=== PATIENT | male | born 1965 | race Two or more races ===

== ENCOUNTER 2025-08-06 21:56 | Emergency (ER) | payer MEDICAID, OTHER ==
[~2025-08-06] VITALS: Ht 177.8 cm; Wt 92.1 kg
--- NOTE | 2025-08-06 23:33 | DVH ---
CLINICAL INDICATION: left ankle pain TECHNIQUE: XY L ANKLE 3 VIEW, XY L FOOT 3 VIEW XRAY Comparison: XY L FOOT 3 VIEW XRAY on DOS: 08/06/25 FINDINGS/IMPRESSION: : There is no evidence of acute fracture or dislocation. 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 Soft tissues are unremarkable. Atherosclerotic vascular calcifications.
[2025-08-06 23:37] VITALS: BP 152/108; PULSE 98; RESP 16; O2SAT 97
[2025-08-07] MEDS ORDERED: ACE3T PO ×2 (00:09→18:24)
--- NOTE | 2025-08-07 00:10 | ED.PDOC ---
Musculoskeletal HPI Comments 60 year old male presents to ER with complaints of left ankle pain x 1 day. Patient reports he started experiencing 9/10 pain and swelling to left lateral ankle with radiation towards left foot s/p accidentally rolling his left ankle inwards while getting out of bed at 2 a.m. prior to arrival to ER. Denies falling/head injury. Notes he did take ibuprofen prior to arrival to ER and presents to ER with use of cane, in mild distress. Denies numbness/tingling or any further symptoms/complaints Chief Complaint: Lower Extremity Time Seen by MD: 22:34 Primary Care Provider: KAT Reviewed Notes: Nurses Notes, Medications, Allergies Allergies: Coded Allergies: Penicillins (Verified Allergy, Unknown, 08/06/25) Home Meds Active Scripts Acetaminophen W/ Codeine (Tylenol W/Cod #3) 1 Tab Tb, 1 TAB PO Q6HPRN, #10 TAB 0 Refills Prov:ADAMSTEFFANY 08/07/25 Information Source: Patient Mode of Arrival: Ambulatory Past Medical History PAST MEDICAL HISTORY: DM, HTN Past Medical History (Other): CKD Surgical History (Other): Lumbar spinal surgery Family History Family History: Unknown Social History Smoker: Non-Smoker Alcohol: Denies ETOH Use Drugs: Denies Drug Use Lives In: Home Constitutional: denies: chills, diaphoresis, fatigue, fever, malaise, sweats, weakness, others EENTM: denies: blurred vision, double vision, ear bleeding, ear discharge, ear drainage, ear pain, ear ringing, eye pain, eye redness, hearing loss, mouth pain, mouth swelling, nasal discharge, nose bleeding, nose congestion, nose pain, photophobia, tearing, throat pain, throat swelling, voice changes, others Respiratory: denies: cough, hemoptysis, orthopnea, SOB at rest, shortness of breath, SOB with excertion, stridor, wheezing, others Cardiovascular: denies: chest pain, dizzy spells, diaphoresis, Dyspnea on exertion, edema, irregular heart beat, left arm pain, lightheadedness, palpitations, PND, syncope, others Gastrointestinal: denies: abdomen distended, abdominal pain, blood streaked bowels, constipated, diarrhea, dysphagia, difficulty swallowing, hematemesis, melena, nausea, poor appetite, poor fluid intake, rectal bleeding, rectal pain, vomiting, others Genitourinary: denies: burning, dysuria, flank pain, frequency, hematuria, incontinence, penile discharge, penile sore, pain, testicle pain, testicle swelling, urgency, others Neurological: denies: dizziness, fainting, headache, left sided numbness, left sided weakness, numbness, paresthesia, pre-existing deficit, right sided numbness, right sided weakness, seizure, speech problems, tingling, tremors, weakness, others Musculoskeletal: reports: others (As stated in HPI) Integumetry: reports: others (As stated in HPI) Allergic/Immunocompromised: denies: Difficulty Healing, Frequent Infections, Hives, Itching, others Hematologic/Lymphatic: denies: anemia, blood clots, easy bleeding, easy bruising, swollen glands, others Endocrine: denies: excessive hunger, excessive sweating, excessive thirst, excessive urination, flushing, intolerance to cold, intolerance to heat, unexplained weight gain, unexplained weight loss, others Psychiatric: denies: anxiety, bipolar disorder, depression, hopeless, panic disorder, schizophrenia, sleepless, suicidal, others Physical Exam General Appearance: Mild Distress HEENT: PERRL/EOMI Neck: Full Range of Motion, Non-Tender, Normal Respiratory: Chest Non-Tender, Lungs Clear, No Accessory Muscle Use, No Respiratory Distress, Normal Breath Sounds Cardiovascular: No Murmur, No Gallop, Regular Rate/Rhythm Breast Exam: Deferred Gastrointestinal: NOT DONE Genitalia: Deferred Pelvic: Deferred Rectal: Deferred Extremities: Normal capillary refill, Normal range of motion Musculoskeletal : Extremity Location: Ankle (TTP/mild swelling noted to left lateral malleolus. Minimal TTP to left lateral foot noted. No further skin changes noted. No other TTP to left lower extremity noted. Pulses intact. Patient favors right leg on ambulation with use of cane) Neurologic: Alert, No Motor Deficits, No Sensory Deficits Cerebellar Function: Normal Reflexes: Normal Skin: Dry, Normal Color, Warm Peripheral Pulses: 2+ dorsalis pedis (R), 2+ dorsalis pedis (L), 2+ Radial (R), 2+ Radial (L), 2+ Brachial (R), 2+ Brachial (L) Lymphatic: No Adenopathy Was a procedure done? Was a procedure done?: No Sedation Sedation?: No Differential Diagnosis EXT Differential Diagnosis: Fracture, Dislocation, Neurovascular injury X-Ray, Labs, Meds, VS Vital Signs Date Time Temp Pulse Resp B/P (MAP) Pulse Ox O2 Delivery O2 Flow Rate FiO2 08/07/25 00:05 Room Air* 0 21 08/06/25 23:37 98 16 152/108 (123) 97 08/06/25 21:58 105 16 189/118 96 PATIENT: DIONI BOSE NACCT: [id number]: [id number] : 1965 LOC: ER ROOM / BED: / AGE / SEX: 60 / M ADM STATUS: REG ER SERVICE 45 ORDERING PHYSICIAN: STEFFANY MEDINA PROCEDURE(s): LFOOT - L FOOT 3 VIEW XRAY REASON: left foot pain ORDER NUMBER(s): [id number], ACCESSION NUMBER(s): [id number] CLINICAL INDICATION: left ankle pain TECHNIQUE: XY L ANKLE 3 VIEW, XY L FOOT 3 VIEW XRAY Comparison: XY L FOOT 3 VIEW XRAY on DOS: 08/06/25 FINDINGS/IMPRESSION: : There is no evidence of acute fracture or dislocation. 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 Soft tissues are unremarkable. Atherosclerotic vascular calcifications. ATED BY: CHRISTIANO RECIO MD DICTATED DATE/TIME: 08/06/252329 SIGNED BY: CHRISTIANO RECIO MD SIGNED DATE/TIME: 08/06/252329 CC: PATIENT: DIONI BOSE NACCT: [id number] UNIT: [id number] : 1965 LOC: ER ROOM / BED: / AGE / SEX: 60 / M ADM STATUS: REG ER SERVICE 45 ORDERING PHYSICIAN: STEFFANY MEDINA PROCEDURE(s): LANKL - L ANKLE 3 VIEW REASON: left ankle pain ORDER NUMBER(s): [id number], ACCESSION NUMBER(s): [id number] CLINICAL INDICATION: left ankle pain TECHNIQUE: XY L ANKLE 3 VIEW, XY L FOOT 3 VIEW XRAY Comparison: XY L FOOT 3 VIEW XRAY on DOS: 08/06/25 FINDINGS/IMPRESSION: : There is no evidence of acute fracture or dislocation. 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 Soft tissues are unremarkable. Atherosclerotic vascular calcifications. ATED BY: CHRISTIANO RECIO MD DICTATED DATE/TIME: 08/06/252329 SIGNED BY: CHRISTIANO RECIO MD SIGNED DATE/TIME: 08/06/252329 CC: Left ankle x-ray reviewed Left foot x-ray reviewed Familia wrap applied Patient neurovascularly intact and reported improvement in symptoms prior to discharge Advised on continued use of cane and on elevation and alternate ice on/off as needed for pain Advised to follow up PCP and orthopedics in 1-2 days Patient verbalized understanding and agreeable with current plan of care Advised to return to ER immediately if symptoms worsen Images Reviewed?: Images reviewed and evaluated by me Time of 1ST Reevaluation: 23:40 Reevaluation 1ST: N/A Patient Education/Counseling: Diagnosis, Treatment, Prognosis, Need For Follow Up Family Education/Counseling: No Family Present Departure 1 Departure Time of Disposition: 00:08 Impression: Primary Impression: Left ankle sprain Qualified Codes: S93.402A - Sprain of unspecified ligament of left ankle, initial encounter Additional Impression: Sprain of left foot Qualified Codes: S93.602A - Unspecified sprain of left foot, initial encounter Disposition: HOME / SELF CARE / HOMELESS Condition: Stable e-Prescriptions Acetaminophen W/ Codeine (Tylenol W/Cod #3) 1 Tab Tb 1 TAB PO Q6HPRN, #10 TAB 0 Refills Prov: STEFFANY MEDINA 08/07/25 Discharged With: Significant Other Critical Care Note Critical Care Time?: No Stability Stability form required: No Heart Score Heart Score: Heart Score Response (Comments) Value History N/A 0 EKG N/A 0 Age N/A 0 Risk Factors N/A 0 Troponin N/A 0 Total 0 STEFFANY MEDINA Aug 07, 2025 00:10
[2025-08-07] MEDS: HYDROcodone-ACET 5/325MG TAB PO ONE (00:18)
== END 2025-08-07 00:25 | disposition home or self-care (01) ==
LOC: ER 21:56
DX: S93.402A Sprain of unspecified ligament of left ankle, initial encounter (principal); S93.602A Unspecified sprain of left foot, initial encounter; I12.9 Hypertensive chronic kidney disease with stage 1 through stage 4 chronic kidney disease, or unspecified chronic kidney disease; E11.22 Type 2 diabetes mellitus with diabetic chronic kidney disease; N18.9 Chronic kidney disease, unspecified; Z79.899 Other long term (current) drug therapy; Z88.0 Allergy status to penicillin; Z98.890 Other specified postprocedural states; X58.XXXA Exposure to other specified factors, initial encounter; Y93.89 Activity, other specified; Y92.89 Other specified places as the place of occurrence of the external cause; Y99.8 Other external cause status
CPT/HCPCS: 73610; 73630